=== PATIENT | female | born 1990 | race Caucasian/White ===

== ENCOUNTER → 2019-03-12 14:51 | Outpatient (CLI) | payer MEDICAID, SELFPAY ==
[2019-03-12 14:54] LABS: Microscopic, Urine URINE MICROSCOPIC (MICROSCOPIC)
[2019-03-12 15:24] LABS: Appearance,Urine CLEAR (Clear); Bilirubin,Urine Negative (Negative); Blood, Urine 2+ (Negative); Color,Urine YELLOW (Yellow); Glucose,Urine (UA) Negative (Negative); Ketones,Urine Negative (Negative); Leukocyte Esterase,Urine Negative (Negative); Nitrate,Urine Negative (Negative); Protein,Urine Negative (Negative); Urobilinogen,Urine 0.2 EU/dl (0.2)
[2019-03-12 15:30] LABS: Bacteria,Urine Trace /lpf; Squamous Epithelial Cell,Urine Occasional #/hpf (0-5); WBC,Urine Occasional #/hpf (0-3)
[2019-03-12 15:37] LABS: Basophils # 0.1 K/mm3 (0-0.2); Basophils % 0.7 % (0.1-2.0); Eosinophils # 0.2 K/mm3 (0.0-0.4); Eosinophils % 1.8 % (0.1-12.0); Hematocrit 43.2 % (37.0-47.0); Hemoglobin 14.6 g/dL (12.2-16.2); Lymphocytes % 33.4 % (10-50); Mean Corpuscular HGB Conc 33.9 g/dL (31.8-35.4); Mean Corpuscular Hemoglobin 30.5 pg (27.0-31.2); Mean Corpuscular Volume 90.1 fl (81-99); Mean Platelet Volume 8.3 fl (7.4-10.4); Monocytes # 0.7 K/mm3 (0.1-1.0); Monocytes % 5.7 % (1.7-9.3); Neutrophils # 7.1 K/mm3 (1.8-7.8); Neutrophils % 58.4 % (37.0-80.0); Platelet Count 262 K/mm3 (142-424); Red Cell Distribution Width 12.7 % (11.5-17.5); White Blood Count 12.1 K/mm3 (4.8-10.8)
[2019-03-12 17:14] LABS: HCG Qualitative, Serum Negative (Negative)
[2019-03-12 18:06] LABS: Alanine Aminotransferase 32 U/L (12-78); Albumin Level 4.2 gm/dL (3.4-5.0); Albumin/Globulin Ratio 1.1 (1.1-1.8); Alkaline Phosphatase 79 U/L (46-116); Aspartate Amino Transferase 16 U/L (15-37); Bilirubin,Total 0.2 mg/dL (0.2-1.0); Blood Urea Nitrogen 11 mg/dL (7-18); Calcium 9.3 mg/dL (8.5-10.1); Carbon Dioxide 27 mmol/L (21.0-32.0); Chloride 101 mmol/L (98-107); Creatinine,Serum 0.73 mg/dL (0.55-1.02); Estimated Glomerular Filt Rate 94 ml/min (>60); GFR (African American) 114 ML/MIN (>60); Globulin 3.7 gm/dl (1.3-3.2); Sodium 139 mmol/L (136-145); Total Protein,Serum 7.9 gm/dL (6.4-8.2)
[2019-03-12 19:02] LABS: Glucose 81 mg/dL (74-106)
== END ==
PROVIDERS: Visit Provider Obstetrics & Gynecology
DX: Z01.818 Encounter for other preprocedural examination (principal)
CPT/HCPCS: 36415; 80053; 81001; 84703; 85025

== ENCOUNTER 2019-03-17 09:23 | Inpatient (IN) ==
--- NOTE | 2019-03-17 13:21 | Progress Note ---
[facility] Anesthesia Checklist - Structural Data Admitted From: Home Planned Operative Procedure/s: [facility] Consent for Planned Operative Procedure(s) Verified: Yes - Airway Assessment C-Spine Mobility Assessed: Yes TMJ Mobility Assessed: Yes Dentition: Good Dentition - Neurological Assessment Level of Consciousness: Awake, Alert, Appropriate - Anesthesia Plan Anesthesia Risk discussed: Yes Anesthesia Plan: Verified ASA Class: II Anesthesia Type: General [facility] History I have reviewed the patient's past medical history: Yes Medical History: Reports:: Seizures (one seizure, 27 years ago) Denies:: Cancer, Diabetes Mellitus Type 1, Diabetes Mellitus Type 2, MRSA *Have you ever received a pneumonia vaccine?: No *Have you received a flu vaccine this season?: No Other Medical History: Denies: Blood Transfusion Reaction Laterality Cases: Bilateral: Myringotomy (Ear Tubes), Tonsillectomy Amputation: No Fractures: No - *Social History Educational Level: Completed High School Smoking Status: Current every day smoker Tobacco Type: cigarettes # Packs/Day (cigarettes): 1 Alcohol Intake: former Alcohol Intake Frequency:: holidays/special occasions only Substance Use Type: denies use *Occupational Status:: employed Housing: house Household Members: significant other *Travel in the last 8 weeks: None - Psychiatric History Expresses thoughts of harming self/others: None Suicide Plan Description: No Plan Family Hx:: No significant family history
--- NOTE | 2019-03-17 13:22 | Progress Note ---
[facility] Anesthesia Record Part II Discharge Time: 13:45 Destination: floor PACU nurse assessment reviewed?: Yes Patient Condition:: Good Anesthesia Complications:: None Swallowing reflex intact?: Yes Cyanosis?: No
--- NOTE | 2019-03-17 13:22 | Progress Note ---
[facility] Anesthesia Record Part I Intake, IV Amount: 1,400 Estimated blood loss (mL): 200 Urine output (mL): 100 Blood Pressure: 159/83 SaO2: 95 Pulse Rate: 99 Respiratory Rate: 12 Temperature: 97 F Patient is:: Awake, Stable Stable to PACU at:: 13:15
--- NOTE | 2019-03-17 13:29 | Operative Note ---
Date of procedure: 03/17/19 Pre-op Diagnosis:: 1. Pelvic pain. 2. Endometriosis. 3. Right adnexal mass. Post-op Diagnosis:: 1. Pelvic pain. 2. Endometriosis. 3. Right adnexal mass. 4. Extensive pelvic adhesions. Procedure performed:: Exploratory laparotomy, extensive lysis of adhesions, total abdominal hysterectomy, right salpingo-oophorectomy. Surgeon:: Ang Nguyen MD Executive Administrator(s):: ALEXANDRA Harris FROZEN MEAT CUTTER:: Elmer Palmer Anesthesia: GETA Estimated blood loss (mL): 300 Operative findings:: 1. Extensive pelvic adhesions. 2. Endometriosis. 3. Right adnexal mass. Operative note:: After the patient was prepped and draped in usual fashion and general anesthesia and intrathecal narcotics were administered, a low Pfannenstiel incision was made across the midline, and the fat and fascia was in usual fashion, bleeders being clamped and coagulated along the way. The peritoneum was entered with Metzenbaum scissors, and extended above and below. There were omental adhesions to the anterior abdominal wall, and these were taken down with a combination of sharp dissection and cautery. The bowel was packed away and a self-retaining [place] retractor was placed. The uterus was symmetrically mildly enlarged. It was fixed in the pelvis with dense adhesions posteriorly. The left tube and ovary were surgically absent. On the right side, the ovary significant hydrosalpinx. This adnexa was also fixed in the pelvis. Using careful blunt dissection, the right adnexa was brought up into view and was suggestive of an endometrioma. The infundibulopelvic and ovarian ligaments were crossclamped and cut, thus removing the right adnexa. These pedicles were Dorothy sutured, and then free tied, with #1 Vicryl. The uterine fundus was grasped with a double-tooth tenaculum and brought up out of the pelvis. Careful sharp and blunt dissection was carried out posteriorly to free up the uterus. The uterine vessels on each side were Dorothy clamped, cut, and Dorothy suture with #1 Vicryl, as were the round ligaments. The bladder peritoneum was sharply and bluntly dissected from the area of incision. The cardinal and uterosacral ligaments were individually, bilaterally, Dorothy clamped, cut, and Dorothy sutured with #1 Vicryl. The vagina was entered anteriorly with a knife, and the uterine specimen was removed with Erasmo scissors. Tayla clamps were used to tent up the vaginal cuff, which was closed with a running lock suture of #1 Vicryl. Extensive irrigation was carried out. There was some minor oozing in the cul-de-sac, which ceased with pressure. A piece of Surgicel was placed against the back of the vaginal cuff for further hemostasis. The upper abdomen was explored and found to be normal. The appendix was surgically absent. The peritoneum was grasped with 3 [place] clamps, and closed with a running semi-lock suture of 0 Vicryl. The muscle was approximated with a running unlocked suture of 0 Vicryl. The fascia was closed with a running lock suture of #1 Vicryl. The subcutaneous fat and Nettie's fascia were closed with a running unlocked suture of 2-0 Vicryl. The skin was closed with a subcuticular suture of 3-0 Vicryl, and appropriately dressed. The urine was clear in the Laguerre catheter. The sponge and needle counts correct. Estimated blood loss was 300 cc. The patient tolerated the procedure well, and was taken to PACU in excellent condition. She will be admitted postoperatively. Condition: stable Disposition: PACU Specimens:: Uterus and right adnexa. Complications:: None.
[2019-03-17 14:45] LABS: Hematocrit 38.7 % (37.0-47.0); Hemoglobin 13.1 g/dL (12.2-16.2)
--- NOTE | 2019-03-17 15:33 | Progress Note ---
Internal Medicine - PN: Subj *Date: 03/17/19 *Time: 15:31 Interval history: This is day of surgery. Patient is afebrile. Her urine output is good. She is complaining of pain from the catheter and I have explained that it can be removed but will have to be replaced if she has difficulty voiding. Surgery has been explained to the patient (extensive lysis of adhesions, DAVE, right SO).. Having some pain management issues at this time. Exam Vital signs and Labs for Last 24 Hours: Temp Pulse Resp BP Pulse Ox 98.2 F 77 18 125/70 97 03/17/19 14:00 03/17/19 14:00 03/17/19 14:00 03/17/19 14:00 03/17/19 14:00 Laboratory Results - last 24 hr 03/17/19 14:30: Hgb 13.1, Hct 38.7 I & O for Last 24 hours: Intake & Output 03/15/19 03/16/19 03/17/19 03/18/19 11:59 11:59 11:59 11:59 Intake Total 1625 / 1625 Output Total 100 / 100 Balance 1525 / 1525
[2019-03-18 07:38] LABS: Basophils % 0.2 % (0.1-2.0); Eosinophils % 0.2 % (0.1-12.0); Hematocrit 34.4 % (37.0-47.0); Lymphocytes # 3.1 K/mm3 (0.7-4.5); Mean Corpuscular HGB Conc 33.8 g/dL (31.8-35.4); Mean Corpuscular Hemoglobin 30.3 pg (27.0-31.2); Mean Corpuscular Volume 89.8 fl (81-99); Mean Platelet Volume 8.3 fl (7.4-10.4); Monocytes # 0.6 K/mm3 (0.1-1.0); Monocytes % 3.9 % (1.7-9.3); Neutrophils # 11.6 K/mm3 (1.8-7.8); Neutrophils % 75.7 % (37.0-80.0); Platelet Count 213 K/mm3 (142-424); Red Blood Count 3.83 M/mm3 (4.20-5.40); Red Cell Distribution Width 12.9 % (11.5-17.5); White Blood Count 15.4 K/mm3 (4.8-10.8)
[2019-03-18 07:44] LABS: Hemoglobin 11.6 g/dL (12.2-16.2)
--- NOTE | 2019-03-18 08:36 | Pharmacy Consult Notes ---
[facility] Pharmacy VTE Monitoring - Patient Demographics Admission date: 03/17/19 Report Date: 03/18/19 Time: 08:35 Allergies/Adverse Reactions: Patient Allergies Penicillins Allergy (Intermediate, Verified 03/17/19 09:53) I-HIVES codeine Allergy (Unknown, Verified 03/17/19 09:53) orange juice Allergy (Unknown, Verified 03/17/19 09:53) tomato Allergy (Verified 03/17/19 09:53) hydromorphone [From Dilaudid] Adverse Reaction (Verified 03/17/19 09:53) Height: 1.63 m Weight: 79.832 kg - VTE Risk Labs: VTE Related Lab Results Hgb 11.6 g/dL (12.2-16.2) L D 03/18/19 07:28 Hct 34.4 % (37.0-47.0) L 03/18/19 07:28 Plt Count 213 K/mm3 (142-424) 03/18/19 07:28 Clinical Trial Participant: No - Prophylaxis VTE Prophylaxis Ordered?: Yes Types of VTE Prophylaxis: IPCS Thigh High (POST OP) Location of Applied Device: Bilateral Lower Extremeties
--- NOTE | 2019-03-18 08:47 | Progress Note ---
Internal Medicine - PN: Subj *Date: 03/18/19 *Time: 08:46 Interval history: This is postop day #1. Surgery is again been explained to the patient. She is afebrile, but she did have a fever to 101 p.o. during the night (98.2 p.o. now). Her Laguerre is out and she has voided well. She is ambulating and on clear liquids. Her abdomen is somewhat distended and tender. Her wound is clean. She continues on IV antibiotics. The plan is continued observation and ambulation. Exam Vital signs and Labs for Last 24 Hours: Temp Pulse Resp BP Pulse Ox 98.2 F 73 16 120/72 98 03/18/19 07:23 03/18/19 07:23 03/18/19 07:23 03/18/19 07:23 03/18/19 07:23 Laboratory Results - last 24 hr 03/17/19 14:30: Hgb 13.1, Hct 38.7 03/17/19 : Urine Color Yellow, Urine Appearance Clear, Urine pH 5.5, Ur Specific [place] 1.020, Urine Protein Negative, Urine Glucose (UA) Negative, Urine Ketones Negative, Urine Blood 2+, Urine Nitrate Negative, Urine Bilirubin Negative, Urine Urobilinogen 0.2, Ur Leukocyte Esterase Negative, Urine RBC Occasional, Urine WBC Occasional, Ur Squamous Epith Cells 5-10, Urine Bacteria Trace 03/18/19 07:28: WBC 15.4 H, RBC 3.83 L, Hgb 11.6 L D, Hct 34.4 L, MCV 89.8, MCH 30.3, MCHC 33.8, RDW 12.9, Plt Count 213, MPV 8.3, Neut % (Auto) 75.7, Lymph % (Auto) 20.0, [place] % (Auto) 3.9, Eos % (Auto) 0.2, Baso % (Auto) 0.2, Neut # (Auto) 11.6 H, Lymph # (Auto) 3.1, [place] # (Auto) 0.6, Eos # (Auto) 0.0, Baso # (Auto) 0.0 I & O for Last 24 hours: Intake & Output 03/15/19 03/16/19 03/17/19 03/18/19 11:59 11:59 11:59 11:59 Intake Total 1625 / 1625 Output Total 700 / 700 Balance 925 / 925
[2019-03-18 09:42] LABS: Eosinophils % 1 % (0-3); Lymphocytes % 11 % (10-50); Monocytes % 2 % (2-9); Neutrophils % 85 % (42-76); Total Cells Counted 100
[2019-03-18 09:43] LABS: RBC Morphology Normal
[2019-03-18 16:57] LABS: Basophils % 0.1 % (0.1-2.0); Eosinophils # 0.1 K/mm3 (0.0-0.4); Eosinophils % 0.5 % (0.1-12.0); Hematocrit 34.8 % (37.0-47.0); Lymphocytes # 2.2 K/mm3 (0.7-4.5); Lymphocytes % 16.7 % (10-50); Mean Corpuscular HGB Conc 34.5 g/dL (31.8-35.4); Mean Corpuscular Hemoglobin 30.7 pg (27.0-31.2); Mean Corpuscular Volume 89.1 fl (81-99); Mean Platelet Volume 8.1 fl (7.4-10.4); Monocytes # 0.6 K/mm3 (0.1-1.0); Monocytes % 4.8 % (1.7-9.3); Neutrophils # 10.3 K/mm3 (1.8-7.8); Neutrophils % 77.9 % (37.0-80.0); Platelet Count 200 K/mm3 (142-424); Red Blood Count 3.91 M/mm3 (4.20-5.40); Red Cell Distribution Width 12.9 % (11.5-17.5); White Blood Count 13.2 K/mm3 (4.8-10.8)
[2019-03-18 17:10] LABS: Albumin/Globulin Ratio 0.8 (1.1-1.8); Anion Gap 12.7 mEq/L (5-15); Bilirubin,Total 0.6 mg/dL (0.2-1.0); Calcium 8.3 mg/dL (8.5-10.1); Globulin 3.6 gm/dl (1.3-3.2); Potassium 3.7 mmoL/L (3.5-5.1); Total Protein,Serum 6.6 gm/dL (6.4-8.2)
--- NOTE | 2019-03-18 17:53 | Progress Note ---
Internal Medicine - PN: Subj *Date: 03/18/19 *Time: 17:49 Interval history: She had a fever last night and then began to have a fever again this afternoon. She has received Tylenol. She is receiving IV Toradol but has not had any Toradol since about 930 this morning. She says she feels unwell. She has pain. She denies any chest pain, shortness of breath or calf tenderness. Her belly is sore. Recent blood work that I did this afternoon shows that her white blood cell count is come down from 15-13. Her hemoglobin has gone up to 12. Rest of her labs are normal. Exam Vital signs and Labs for Last 24 Hours: Temp Pulse Resp BP Pulse Ox 99.7 F H 111 H 20 128/84 97 03/18/19 15:00 03/18/19 15:00 03/18/19 15:00 03/18/19 15:00 03/18/19 15:00 Laboratory Results - last 24 hr 03/18/19 07:28: WBC 15.4 H, RBC 3.83 L, Hgb 11.6 L D, Hct 34.4 L, MCV 89.8, MCH 30.3, MCHC 33.8, RDW 12.9, Plt Count 213, MPV 8.3, Neut % (Auto) 75.7, Lymph % (Auto) 20.0, [place] % (Auto) 3.9, Eos % (Auto) 0.2, Baso % (Auto) 0.2, Neut # (Auto) 11.6 H, Lymph # (Auto) 3.1, [place] # (Auto) 0.6, Eos # (Auto) 0.0, Baso # (Auto) 0.0, Total Counted 100, Neutrophils % (Manual) 85 H, Lymphocytes % (Manual) 11, Monocytes % (Manual) 2, Eosinophils % (Manual) 1, Metamyelocytes % 1.0, Platelet Estimate Normal, RBC Morphology Normal 03/18/19 16:53: WBC 13.2 H, RBC 3.91 L, Hgb 12.0 L, Hct 34.8 L, MCV 89.1, MCH 30.7, MCHC 34.5, RDW 12.9, Plt Count 200, MPV 8.1, Neut % (Auto) 77.9, Lymph % (Auto) 16.7, [place] % (Auto) 4.8, Eos % (Auto) 0.5, Baso % (Auto) 0.1, Neut # (Auto) 10.3 H, Lymph # (Auto) 2.2, [place] # (Auto) 0.6, Eos # (Auto) 0.1, Baso # (Auto) 0.0 03/18/19 16:53: Sodium 136, Potassium 3.7, Chloride 102, Carbon Dioxide 25, Anion Gap 12.7, BUN 7, Creatinine 0.60, Estimated Creat Clear 174, Estimated GFR 118, Est GFR ( Amer) 143, Glucose 103, Calcium 8.3 L, Total Bilirubin 0.6, AST 12 L, ALT 19, Alkaline Phosphatase 66, Total Protein 6.6, Albumin 3.0 L , Globulin 3.6 H, Albumin/Globulin Ratio 0.8 L I & O for Last 24 hours: Intake & Output 03/16/19 03/17/19 03/18/19 03/19/19 11:59 11:59 11:59 11:59 Intake Total 1625 / 1625 Output Total 1150 / 1150 Balance 475 / 475 - Constitutional no acute distress - *Routine HEENT Exam Head: Present: normocephalic Eye: Present: EOMI, PERRL ENT: Present: mucous membranes moist - *Routine Neck Exam Present: supple, full ROM - *Routine Respiratory Exam Absent: accessory muscle use (good air entry bilaterally), wheezes, crackles Comments: She has good air entry bilaterally - *Routine Cardiovascular Exam Present: RRR. Absent: murmur - *Routine Abdominal Exam Present: soft, normoactive bowel sounds, surgical scars. Absent: tenderness, rebound, guarding, mass Comments: Her incision is clean and dry. - *Routine Rectal Exam Patient deferred: visual exam, digital exam - *Routine Exam Patient deferred: external exam, groin exam, perineal exam - *Routine Extremities Exam Present: full ROM. Absent: cyanosis, edema, calf tenderness - *Routine Skin Exam Present: intact (good color) - *Routine Neurological Exam Present: alert, oriented X3 - Routine Psychiatric Exam Present: normal affect Assessment and Plan (1) Postoperative fever Current visit: Yes Status: Acute Category: Medical Code(s): R50.82 - Postprocedural fever - Assessment and plan all Dx Assessment and Plan for all problems:: At this point in time I cannot find any reason for her postoperative fever. She has belly pain but she has good bowel sounds. She denies any calf tenderness. She denies any shortness of breath and there was no decreased air entry bilaterally on her chest examination. She denies any dysuria. We will send off a urinalysis to make sure she does not have a UTI. She is continuing to get IV antibiotics. We will continue with her anti-inflammatory scheduled as well as Tylenol. We will see how she does overnight. If her fever persists we will consider a CT scan of her abdomen and possibly chest x-ray and/or CT of her chest. She has Lovenox daily as well as compression hose on her legs.
[2019-03-18 21:14] LABS: Microscopic, Urine URINE MICROSCOPIC (MICROSCOPIC)
[2019-03-18 21:20] LABS: Appearance,Urine CLEAR (Clear); Bilirubin,Urine Negative (Negative); Blood, Urine 2+ (Negative); Color,Urine YELLOW (Yellow); Glucose,Urine (UA) Negative (Negative); Ketones,Urine Negative (Negative); Leukocyte Esterase,Urine Negative (Negative); PH,Urine 6.5 (5.0-8.5); Protein,Urine Negative (Negative); Specific Gravity, Urine <= 1.005 (1.005-1.030); Urobilinogen,Urine 0.2 EU/dl (0.2)
[2019-03-18 21:40] LABS: Bacteria,Urine Trace /lpf; RBC,Urine Occasional #/hpf (0-3); WBC,Urine Occasional #/hpf (0-3)
--- NOTE | 2019-03-19 07:02 | Progress Note ---
Internal Medicine - PN: Subj *Date: 03/19/19 *Time: 07:00 Interval history: This is postop day #2. Patient is afebrile, although she had another temperature elevation to 101 p.o. during the night. Her white count has decreased to 13.2. Her IV is infiltrated. Her urine output is good. She is ambulating and had a small bowel movement this morning. Her abdomen is soft, although slightly distended. Her wound is clean. Her lungs are clear. Calves are nontender. Impression: Likely resolving postop ileus. The plan is to start her on oral Levaquin and oral Percocet 5/325, and to increase her diet to a soft diet. Going to get a chest x-ray this morning also. Exam Vital signs and Labs for Last 24 Hours: Temp Pulse Resp BP Pulse Ox 98.4 F 104 H 18 130/74 97 03/19/19 05:32 03/19/19 05:32 03/19/19 05:32 03/19/19 05:32 03/19/19 05:32 Laboratory Results - last 24 hr 03/18/19 07:28: WBC 15.4 H, RBC 3.83 L, Hgb 11.6 L D, Hct 34.4 L, MCV 89.8, MCH 30.3, MCHC 33.8, RDW 12.9, Plt Count 213, MPV 8.3, Neut % (Auto) 75.7, Lymph % (Auto) 20.0, [place] % (Auto) 3.9, Eos % (Auto) 0.2, Baso % (Auto) 0.2, Neut # (A uto) 11.6 H, Lymph # (Auto) 3.1, [place] # (Auto) 0.6, Eos # (Auto) 0.0, Baso # (Auto) 0.0, Total Counted 100, Neutrophils % (Manual) 85 H, Lymphocytes % (Manual) 11, Monocytes % (Manual) 2, Eosinophils % (Manual) 1, Metamyelocytes % 1.0, Platelet Estimate Normal, RBC Morphology Normal 03/18/19 16:53: WBC 13.2 H, RBC 3.91 L, Hgb 12.0 L, Hct 34.8 L, MCV 89.1, MCH 30.7, MCHC 34.5, RDW 12.9, Plt Count 200, MPV 8.1, Neut % (Auto) 77.9, Lymph % (Auto) 16.7, [place] % (Auto) 4.8, Eos % (Auto) 0.5, Baso % (Auto) 0.1, Neut # (Auto) 10.3 H, Lymph # (Auto) 2.2, [place] # (Auto) 0.6, Eos # (Auto) 0.1, Baso # (Auto) 0.0 03/18/19 16:53: Sodium 136, Potassium 3.7, Chloride 102, Carbon Dioxide 25, Anion Gap 12.7, BUN 7, Creatinine 0.60, Estimated Creat Clear 174, Estimated GFR 118, Est GFR ( Amer) 143, Glucose 103, Calcium 8.3 L, Total Bilirubin 0.6, AST 12 L, ALT 19, Alkaline Phosphatase 66, Total Protein 6.6, Albumin 3.0 L , Globulin 3.6 H, Albumin/Globulin Ratio 0.8 L 03/18/19 20:54: Urine Color Yellow, Urine Appearance Clear, Urine pH 6.5, Ur Specific [place] <= 1.005, Urine Protein Negative, Urine Glucose (UA) Negative, Urine Ketones Negative, Urine Blood 2+, Urine Nitrate Negative, Urine Bilirubin Negative, Urine Urobilinogen 0.2, Ur Leukocyte Esterase Negative, Urine RBC Occasional, Urine WBC Occasional, Ur Squamous Epith Cells 3-5, Urine Bacteria Trace 03/19/19 02:18: Influenza Type A Ag Negative, Influenza Type B Ag Negative 03/19/19 02:18: Group A Strep Rapid Negative I & O for Last 24 hours: Intake & Output 03/16/19 03/17/19 03/18/19 03/19/19 11:59 11:59 11:59 11:59 Intake Total 1625 / 1625 Output Total 1150 / 1150 Balance 475 / 475 Assessment and Plan (1) Postoperative fever Current visit: Yes Status: Acute Category: Medical Code(s): R50.82 - Postprocedural fever
[2019-03-19 07:25] LABS: Basophils % 0.4 % (0.1-2.0); Eosinophils # 0.1 K/mm3 (0.0-0.4); Eosinophils % 0.8 % (0.1-12.0); Hematocrit 32.6 % (37.0-47.0); Hemoglobin 11.2 g/dL (12.2-16.2); Lymphocytes # 2.5 K/mm3 (0.7-4.5); Lymphocytes % 21.3 % (10-50); Mean Corpuscular HGB Conc 34.4 g/dL (31.8-35.4); Mean Corpuscular Volume 90.1 fl (81-99); Mean Platelet Volume 8.2 fl (7.4-10.4); Monocytes # 0.6 K/mm3 (0.1-1.0); Monocytes % 4.7 % (1.7-9.3); Neutrophils # 8.5 K/mm3 (1.8-7.8); Neutrophils % 72.7 % (37.0-80.0); Platelet Count 184 K/mm3 (142-424); Red Blood Count 3.62 M/mm3 (4.20-5.40); Red Cell Distribution Width 12.9 % (11.5-17.5); White Blood Count 11.7 K/mm3 (4.8-10.8)
--- NOTE | 2019-03-19 13:06 | Progress Note ---
Internal Medicine - PN: Subj *Date: 03/19/19 *Time: 13:03 Interval history: Called to see patient who has had the sudden onset of acute low back pain, primarily on the right. She is writhing in bed and crying. She states it started when she got up to void (normal clear urine). Abdominal exam reveals good bowel sounds, but exquisite tenderness in the right low back and CVA area. I am going to give her some Dilaudid and order a CT of her abdomen and pelvis, with and without contrast. Her IV will be restarted and she will be kept n.p.o. for now. Her temperature is 98.9 p.o. her blood pressure 150/90 (in pain). Going to also reinsert a Laguerre catheter and send urine for culture. Concern for ureteral obstruction. Exam Vital signs and Labs for Last 24 Hours: Temp Pulse Resp BP Pulse Ox 98.6 F 97 H 18 138/81 97 03/19/19 08:00 03/19/19 08:00 03/19/19 08:00 03/19/19 08:00 03/19/19 08:02 Laboratory Results - last 24 hr 03/18/19 16:53: WBC 13.2 H, RBC 3.91 L, Hgb 12.0 L, Hct 34.8 L, MCV 89.1, MCH 30.7, MCHC 34.5, RDW 12.9, Plt Count 200, MPV 8.1, Neut % (Auto) 77.9, Lymph % (Auto) 16.7, [place] % (Auto) 4.8, Eos % (Auto) 0.5, Baso % (Auto) 0.1, Neut # (Auto) 10.3 H, Lymph # (Auto) 2.2, [place] # (Auto) 0.6, Eos # (Auto) 0.1, Baso # (Auto) 0.0 03/18/19 16:53: Sodium 136, Potassium 3.7, Chloride 102, Carbon Dioxide 25, Anion Gap 12.7, BUN 7, Creatinine 0.60, Estimated Creat Clear 174, Estimated GFR 118, Est GFR ( Amer) 143, Glucose 103, Calcium 8.3 L, Total Bilirubin 0.6, AST 12 L, ALT 19, Alkaline Phosphatase 66, Total Protein 6.6, Albumin 3.0 L , Globulin 3.6 H, Albumin/Globulin Ratio 0.8 L 03/18/19 20:54: Urine Color Yellow, Urine Appearance Clear, Urine pH 6.5, Ur Specific [place] <= 1.005, Urine Protein Negative, Urine Glucose (UA) Negative, Urine Ketones Negative, Urine Blood 2+, Urine Nitrate Negative, Urine Bilirubin Negative, Urine Urobilinogen 0.2, Ur Leukocyte Esterase Negative, Urine RBC Occasional, Urine WBC Occasional, Ur Squamous Epith Cells 3-5, Urine Bacteria Trace 03/19/19 02:18: Influenza Type A Ag Negative, Influenza Type B Ag Negative 03/19/19 02:18: Group A Strep Rapid Negative 03/19/19 07:12: WBC 11.7 H, RBC 3.62 L, Hgb 11.2 L, Hct 32.6 L, MCV 90.1, MCH 31.0, MCHC 34.4, RDW 12.9, Plt Count 184, MPV 8.2, Neut % (Auto) 72.7, Lymph % (Auto) 21.3, [place] % (Auto) 4.7, Eos % (Auto) 0.8, Baso % (Auto) 0.4, Neut # (Auto) 8.5 H, Lymph # (Auto) 2.5, [place] # (Auto) 0.6, Eos # (Auto) 0.1, Baso # (Auto) 0.0 I & O for Last 24 hours: Intake & Output 03/17/19 03/18/19 03/19/19 03/20/19 11:59 11:59 11:59 11:59 Intake Total 1625 / 1625 Output Total 1150 / 1150 Balance 475 / 475 Weight 176 lb Assessment and Plan (1) Postoperative fever Current visit: Yes Status: Acute Category: Medical Code(s): R50.82 - Postprocedural fever
--- NOTE | 2019-03-19 15:18 | Progress Note ---
Internal Medicine - PN: Subj *Date: 03/19/19 *Time: 15:15 Interval history: The pain has somewhat resolved. CT with and without contrast revealed no evidence of hydroureter or urinary extravasation. There is no evidence of bleeding or ileus, but there is a large amount of stool in the bowel. (I was under the mistaken impression that she had had a bowel movement this morningnot so.) I have discussed this with the patient. Plan is to slowly reintroduce food, starting with clear liquids, and to observe with IV pain medication. A Dulcolax suppository has been recommended. Exam Vital signs and Labs for Last 24 Hours: Temp Pulse Resp BP Pulse Ox 98.9 F 98 H 20 150/90 H 99 03/19/19 13:00 03/19/19 13:00 03/19/19 13:00 03/19/19 13:00 03/19/19 13:00 Laboratory Results - last 24 hr 03/18/19 16:53: WBC 13.2 H, RBC 3.91 L, Hgb 12.0 L, Hct 34.8 L, MCV 89.1, MCH 30.7, MCHC 34.5, RDW 12.9, Plt Count 200, MPV 8.1, Neut % (Auto) 77.9, Lymph % (Auto) 16.7, [place] % (Auto) 4.8, Eos % (Auto) 0.5, Baso % (Auto) 0.1, Neut # (Auto) 10.3 H, Lymph # (Auto) 2.2, [place] # (Auto) 0.6, Eos # (Auto) 0.1, Baso # (Auto) 0.0 03/18/19 16:53: Sodium 136, Potassium 3.7, Chloride 102, Carbon Dioxide 25, Anion Gap 12.7, BUN 7, Creatinine 0.60, Estimated Creat Clear 174, Estimated GFR 118, Est GFR ( Amer) 143, Glucose 103, Calcium 8.3 L, Total Bilirubin 0.6, AST 12 L, ALT 19, Alkaline Phosphatase 66, Total Protein 6.6, Albumin 3.0 L , Globulin 3.6 H, Albumin/Globulin Ratio 0.8 L 03/18/19 20:54: Urine Color Yellow, Urine Appearance Clear, Urine pH 6.5, Ur Specific [place] <= 1.005, Urine Protein Negative, Urine Glucose (UA) Negative, Urine Ketones Negative, Urine Blood 2+, Urine Nitrate Negative, Urine Bilirubin Negative, Urine Urobilinogen 0.2, Ur Leukocyte Esterase Negative, Urine RBC Occasional, Urine WBC Occasional, Ur Squamous Epith Cells 3-5, Urine Bacteria Trace 03/19/19 02:18: Influenza Type A Ag Negative, Influenza Type B Ag Negative 03/19/19 02:18: Group A Strep Rapid Negative 03/19/19 07:12: WBC 11.7 H, RBC 3.62 L, Hgb 11.2 L, Hct 32.6 L, MCV 90.1, MCH 31.0, MCHC 34.4, RDW 12.9, Plt Count 184, MPV 8.2, Neut % (Auto) 72.7, Lymph % (Auto) 21.3, [place] % (Auto) 4.7, Eos % (Auto) 0.8, Baso % (Auto) 0.4, Neut # (Auto) 8.5 H, Lymph # (Auto) 2.5, [place] # (Auto) 0.6, Eos # (Auto) 0.1, Baso # (Auto) 0.0 I & O for Last 24 hours: Intake & Output 03/17/19 03/18/19 03/19/19 03/20/19 11:59 11:59 11:59 11:59 Intake Total 1625 / 1625 Output Total 1150 / 1150 Balance 475 / 475 Weight 176 lb Assessment and Plan (1) Postoperative fever Current visit: Yes Status: Acute Category: Medical Code(s): R50.82 - Postprocedural fever
--- NOTE | 2019-03-20 07:21 | Progress Note ---
Internal Medicine - PN: Subj *Date: 03/20/19 *Time: 07:20 Interval history: This is postop day #3. The patient has been afebrile throughout the night. She finally agreed to a Dulcolax suppository and has had 2 good bowel movements, which have relieved her back pain and most of her abdominal pain. She is tolerating full liquids and ambulating well. Her CT scan showed no evidence of ureteral obstruction or free fluid. The plan is to advance her diet and observe today. Exam Vital signs and Labs for Last 24 Hours: Temp Pulse Resp BP Pulse Ox 98.0 F 82 18 122/80 95 03/20/19 06:38 03/20/19 04:10 03/20/19 04:10 03/20/19 04:10 03/20/19 04:10 Laboratory Results - last 24 hr 03/19/19 07:12: WBC 11.7 H, RBC 3.62 L, Hgb 11.2 L, Hct 32.6 L, MCV 90.1, MCH 31.0, MCHC 34.4, RDW 12.9, Plt Count 184, MPV 8.2, Neut % (Auto) 72.7, Lymph % (Auto) 21.3, [facility] % (Auto) 4.7, Eos % (Auto) 0.8, Baso % (Auto) 0.4, Neut # (Auto) 8.5 H, Lymph # (Auto) 2.5, [facility] # (Auto) 0.6, Eos # (Auto) 0.1, Baso # (Auto) 0.0 I & O for Last 24 hours: Intake & Output 03/17/19 03/18/19 03/19/19 03/20/19 11:59 11:59 11:59 11:59 Intake Total 1625 / 1625 Output Total 1150 / 1150 2650 / 2650 Balance 475 / 475 -2650 / -2650 Weight 176 lb 176 lb Assessment and Plan (1) Postoperative fever Current visit: Yes Status: Acute Category: Medical Code(s): R50.82 - Postprocedural fever
--- NOTE | 2019-03-20 16:16 | Progress Note ---
Internal Medicine - PN: Subj *Date: 03/20/19 *Time: 16:15 Interval history: The patient has remained afebrile. She is eating and ambulating and has had bowel movements. Her abdomen is soft. Wound clean. She is anxious for discharge and will be discharged this afternoon. Exam Vital signs and Labs for Last 24 Hours: Temp Pulse Resp BP Pulse Ox 98.2 F 93 H 20 130/85 100 03/20/19 12:25 03/20/19 12:25 03/20/19 12:25 03/20/19 12:25 03/20/19 12:25 I & O for Last 24 hours: Intake & Output 03/18/19 03/19/19 03/20/19 03/21/19 11:59 11:59 11:59 11:59 Intake Total 1625 / 1625 Output Total 1150 / 1150 2650 / 2650 Balance 475 / 475 -2650 / -2650 Weight 176 lb 176 lb Assessment and Plan (1) Postoperative fever Current visit: Yes Status: Acute Category: Medical Code(s): R50.82 - Postprocedural fever
--- NOTE | 2019-03-20 16:25 | Discharge Summary ---
General - General Admission date:: 03/17/19 Discharge date: 03/20/19 (This 28-year-old white female was admitted for definitive treatment of pelvic pain and endometriosis. She had previously undergone a left salpingo-oophorectomy, and was known to have extensive pelvic adhesions. On the date of admission, she was taken to the operating room, where she underwent an exploratory laparotomy with extensive lysis of adhesions total abdominal hysterectomy and right salpingo-oophorectomy, without complications. Her appendix had previously been removed. A large right endometrioma was encountered during surgery. She received Delestrogen 30 mg IM in PACU on the date of surgery. Initially the patient did well postoperatively. On the evening of the second postoperative day she experienced the acute onset of what appeared to be exquisite right low back pain. She had spiked a fever to 101.4 orally on both the first and second postop evenings. Patient's hemoglobin remained stable at 11.6 to 11.2 g. Her initial white count was 15.4 g but this subsequently decreased with intravenous antibiotics. Chest x-ray was normal. CT scan was read as normal (no evidence of ureteral obstruction or free fluid or extravasation of fluid. However, a large amount of stool was noted in the colon. After 2 Dulcolax suppositories were administered, the patient had 2 large bowel movements and her pain greatly subsided to a normal post-op level. Impression: obstipation/post-op ileus. Since that time the patient has remained afebrile and her abdomen is soft..Herf wound is clean/intact. She is anxious for discharge, and is discharged home on the 3rd post-op day on Percocet 5/325 (#30), 1 po q6h prn pain..Tylenol may be taken intermittently. She is given appropriate instructions as to diet and exercise, and she is to return to the office in 2 weeks for follow-up, or prn for worsening symptoms. She is a smoer, but refuses smoking cessation patches.) Objective Vital signs: Temp Pulse Resp BP Pulse Ox 98.2 F 93 H 20 130/85 100 03/20/19 12:25 03/20/19 12:25 03/20/19 12:25 03/20/19 12:25 03/20/19 12:25 DS: Diagnosis - Discharge Diagnosis (1) Postoperative fever Status: Acute Discharge Plan - Patient Discharge Instructions ACTIVITY: Ambulate as tolerated DIET: advance to your usual diet Additional Instructions: No heavy lifting, no strenuous activity, no driving while taking prescription narcotics. Patient Instructions: Hysterectomy -- Open Surgery, Surgical Site Infection, DI for Postoperative Pain - Follow up Plan Follow up with: Ang Nguyen MD [Staff Physician] - Disposition: Home, Self-Intermediate Medications: Home Medications Medication Instructions Recorded Confirmed Type Hydrocod/Acet 5/325 mg [[place] 1 tab PO Q6HP PRN #10 tab 02/17/19 03/17/19 Rx 5/325mg tablet] Chlorhexidine Gluconate 1 applic TOPICAL ONCE 03/16/19 03/17/19 History Oxycodone HCl [OxyIR 5mg tablet] 5 mg PO Q6HP PRN #30 tab 03/20/19 Rx Prescriptions/Medication Reconciliation: New Acetaminophen [Acetaminophen 325mg tab] 650 mg PO Q4HP PRN tablet PRN Reason: Mild Pain Oxycodone HCl [OxyIR 5mg tablet] 5 mg PO Q6HP PRN #30 tab PRN Reason: Moderate Pain Discontinued Hydrocod/Acet 5/325 mg [[place] 5/325mg tablet] 1 tab PO Q6HP PRN #10 tab PRN Reason: Pain Chlorhexidine Gluconate 1 applic TOPICAL ONCE
== END 2019-03-20 16:50 | disposition home or self-care (01) | DRG 743 ==
LOC: OR 09:23 → OB 13:15
PROVIDERS: ADMIT Obstetrics & Gynecology; ATTEND Obstetrics & Gynecology
CPT/HCPCS: 36415; 71020; 71046; 74178; 80053; 81001; 85007; 85014; 85018; 85025; 87275; 87276; 87430; 94761; 96374; J1956; J2405; J2710; Q9967; S0077

== ENCOUNTER 2020-03-16 13:50 | Emergency (ER) | payer MEDICAID, SELFPAY ==
[2020-03-16 13:51] VITALS: BP 137/94; PULSE 83; RESP 18; TEMP 37; O2SAT 98; BMI 32.2
--- NOTE | 2020-03-16 14:26 | HMH.EDDENT ---
ED Disposition Clinical Impression: Aphthous ulcer, Toothache, Dental caries, Fracture of tooth Disposition: Home, Self-Care Condition on Discharge: Good Instructions: DI for Tooth Decay, DI for Dental Pain Prescriptions: clindamycin HCL [Clindamycin HCl 300mg Cap] 300 mg PO Q8 10 Days #30 cap Transmission Status: Pending to [facility] Ketorolac Tromethamine [Toradol 10mg tablet] 10 mg PO Q6H 5 Days #20 tab Transmission Status: Pending to [facility] Referrals: Brenda Santos [Primary Care Provider] - - Critical Care Critical Care Time: No Attestation: On 03/16/20, the high probability of a clinically significant, sudden or life threatening deterioration of the following system(s) required my full and direct attention, intervention and personal management. The time I documented below is in addition to time spent performing reported procedures but includes the following listed in this critical care notation. Medical Decision Making - Abdirahman Inquiry Pt receiving controlled substance: No Vital Signs: 03/16/20 13:51 Temperature 98.6 F Temperature Source Oral Pulse Rate [Right Radial] 83 Respiratory Rate 18 Blood Pressure [Right Arm] 137/94 H Blood Pressure Mean [Right Arm] 108 Blood Pressure Source [Right Arm] Automatic Cuff Blood Pressure Position [Right Arm] Sitting 02 Sat by Pulse Oximetry 98 Oxygen Delivery Method Room Air Dental HPI - General Chief complaint: Dental/Oral Stated complaint: dental pain,cough,headache Time Seen by Provider: 03/16/20 14:26 Mode of Arrival: Ambulatory Source of Information: Patient Limitations: No Limitations Description of Symptoms (Recalled from ER Triage Doc. by RN): PT C/O RT SIDE DENTAL PAIN SINCE YESTERDAY D/T 2 BAD TEETH ON THAT SIDE OF HER MOUTH AND INABILITY TO GET INTO THE DENTIST. - History of Present Illness HPI Narrative: 29-year-old female presents the ED complaining of dental pain. She states that she had a fractured tooth on Saturday and she is noticed an increase swelling of her lower jaw. She states that she cannot get into see her dentist because dentist are not open yet even though dentist were allowed to start practicing on Saturday of this week secondary to the restrictions here in the state [facility] however she states her dentist does not have the appropriate PPE to take care of patients as of yet. And she presents here to the ED she denies any recent fever shakes or chills she also denies any cough or shortness of breath. She does state her pain is 7 out of 10 and sharp she states no alleviating factors exacerbating factors include eating and drinking warm fluids. - Related Data Previous Rx's Medication Instructions Recorded Acetaminophen [Acetaminophen 325mg 650 mg PO Q4HP PRN tab 03/20/19 tab] Oxycodone HCl [OxyIR 5mg tablet] 5 mg PO Q6HP PRN #30 tab 03/20/19 estradiol 2 mg tablet 2 mg PO DAILY #30 tab 04/03/19 Ketorolac Tromethamine [Toradol 10 mg PO Q6H 5 Days #20 tab 03/16/20 10mg tablet] clindamycin HCL [Clindamycin HCl 300 mg PO Q8 10 Days #30 cap 03/16/20 300mg Cap] Allergies Allergy/AdvReac Type Severity Reaction Status Date / Time Penicillins Allergy Intermediate I-HIVES Verified 05/04/19 15:30 codeine Allergy Unknown Verified 05/04/19 15:30 orange juice Allergy Unknown Verified 05/04/19 15:30 tomato Allergy Verified 05/04/19 15:30 hydromorphone [From Dilaudid] AdvReac Verified 05/04/19 15:30 [facility] History - Hepatitis A Screen Drug use history?: No High risk sexual behaviors?: No History of sexually transmitted infection?: No Currently employed?: No Childcare worker?: No Do you have indoor plumbing?: Yes Do you have electricity?: Yes Attestation statement:: This patient has been screened for Hepatitis A risk factors. I have reviewed the patient's past medical history: Yes Medical History: Reports:: Seizures Denies:: Cancer, Diabetes Mellitus Type 1, Di
[2020-03-16 14:50] VITALS: BP 137/94; PULSE 83; RESP 18; TEMP 37; O2SAT 98
== END 2020-03-16 14:50 | disposition home or self-care (01) ==
PROVIDERS: Emergency Provider Family Medicine; PCP Nurse Practitioner Family
DX: K12.0 Recurrent oral aphthae (principal); S02.5XXA Fracture of tooth (traumatic), initial encounter for closed fracture; K02.9 Dental caries, unspecified
CPT/HCPCS: 96372; 99281

== ENCOUNTER 2022-06-15 14:23 | Emergency (ER) | payer MEDICAID, SELFPAY ==
[2022-06-15 14:35] VITALS: BP 140/100; PULSE 86; RESP 16; TEMP 36.6; O2SAT 98; BMI 29.8
--- NOTE | 2022-06-15 14:55 | HMH.EDUTC ---
[facility] [place] Disposition Clinical Impression: Dental abscess, Pain, dental Disposition: Home, Self-Care Condition on Discharge: Good Instructions: Tooth Abscess, DI for Tooth Abscess Additional Instructions: Drink plenty of fluids. Take ibuprofen for pain. I sent in a prescription to your pharmacy. Take the medications as directed. Follow up with your regular doctor. GO TO THE ER FOR ANY WORSENING SYMPTOMS you have to follow up with a dentist. Prescriptions: Ibuprofen [Ibuprofen 800mg Tablet] 800 mg PO Q8HP PRN #30 tab PRN Reason: Moderate Pain Transmission Status: Sent to [facility] Ondansetron [Zofran 4mg ODT] 4 mg PO Q8HP PRN #12 tab PRN Reason: Nausea Transmission Status: Sent to [facility] clindamycin HCL [Cleocin HCl] 300 mg PO Q8H 10 Days #30 cap Transmission Status: Received by [facility] Referrals: Brenda Santos [Primary Care Provider] - Forms: Work/School Release Time of Disposition: 15:38 Medical Decision Making - Medical Records Medical records reviewed: No: I reviewed the patient's medical records. - Abdirahman Inquiry Pt receiving controlled substance: No Vital Signs: 06/15/22 14:35 06/15/22 15:08 Temperature 97.8 F 98.4 F Temperature Source Oral Oral Pulse Rate [Right Radial] 86 84 Respiratory Rate 16 17 Blood Pressure [Right Arm] 140/100 H 136/84 Blood Pressure Mean [Right Arm] 113 101 Blood Pressure Position [Right Arm] Sitting 02 Sat by Pulse Oximetry 98 99 Oxygen Delivery Method Room Air [facility] [place] HPI - General Stated complaint: jaw/oral pain Time Seen by Provider: 06/15/22 14:55 Mode of Arrival: Ambulatory Source of Information: Patient Limitations: No Limitations Description of Symptoms (Recalled from Triage Doc. by RN): Pt c/o R sided jaw and dental pain x2 days. Pt reports knot on gum area. Pt denies fevers. - History of Present Illness Provider Complaint: She c/o right upper jaw dental pain and swelling for the past 4 days. She has an appt with her dentist but its not until 2 weeks from now. She denies any fever or chills. - Related Data Previous Rx's Medication Instructions Recorded Acetaminophen [Acetaminophen 325mg 650 mg PO Q4HP PRN tab 03/20/19 tab] Oxycodone HCl [OxyIR 5mg tablet] 5 mg PO Q6HP PRN #30 tab 03/20/19 estradiol 2 mg tablet 2 mg PO DAILY #30 tab 04/03/19 Ketorolac Tromethamine [Toradol 10 mg PO Q6H 5 Days #20 tab 03/16/20 10mg tablet] clindamycin HCL [Clindamycin HCl 300 mg PO Q8 10 Days #30 cap 03/16/20 300mg Cap] Ibuprofen [Ibuprofen 800mg 800 mg PO Q8HP PRN #30 tab 06/15/22 Tablet] Ondansetron [Zofran 4mg ODT] 4 mg PO Q8HP PRN #12 tab 06/15/22 clindamycin HCL [Cleocin HCl] 300 mg PO Q8H 10 Days #30 cap 06/15/22 Allergies Allergy/AdvReac Type Severity Reaction Status Date / Time Penicillins Allergy Intermediate I-HIVES Verified 06/15/22 15:11 codeine Allergy Unknown Verified 06/15/22 15:11 orange juice Allergy Unknown Verified 06/15/22 15:11 tomato Allergy Verified 06/15/22 15:11 hydromorphone [From Dilaudid] AdvReac Verified 06/15/22 15:11 [facility] History - Hepatitis A Screen Attestation statement:: This patient has been screened for Hepatitis A risk factors. I have reviewed the patient's past medical history: Yes Medical History: Reports:: Seizures Denies:: Cancer, Diabetes Mellitus Type 1, Diabetes Mellitus Type 2, MRSA Other Medical History: Denies: Blood Transfusion Reaction Comment: ENDOMETRIOSIS. TWIN Laterality Cases: Bilateral: Myringotomy (Ear Tubes), Tonsillectomy Amputation: No Fractures: No Comment: DX. LSC, EXPL. LAP., BILATERAL OV. CYSTX, APPT ([place])---2003 W/ PATH=RT. OV. CYSTADENOFRIBOMA AND SAPINGITIS. DX. LSC (DR. CORDOVA)---2008. 03/17/19-Ex. Lap, Ex. adhesiolysis, DAVE, Rt. SO. EXPL. LAP W/ EXTENSIVE ADHESIOLYSIS, LT SO, MYOMX---2017. 2019-Ex. Lap, extensive lysis of adhesions, DAVE, Rt. SO - Social History Smoking
[2022-06-15 15:08] VITALS: BP 136/84; PULSE 84; RESP 17; TEMP 36.9; O2SAT 99; BMI 29.8
[2022-06-15 15:47] VITALS: BP 136/84; PULSE 84; RESP 17; TEMP 36.9
== END 2022-06-15 15:47 | disposition home or self-care (01) ==
PROVIDERS: Emergency Provider Nurse Practitioner Family; PCP Nurse Practitioner Family
DX: K04.7 Periapical abscess without sinus (principal); R68.84 Jaw pain; N80.9 Endometriosis, unspecified; G40.909 Epilepsy, unspecified, not intractable, without status epilepticus; F17.210 Nicotine dependence, cigarettes, uncomplicated; Z79.1 Long term (current) use of non-steroidal anti-inflammatories (NSAID); Z79.890 Hormone replacement therapy; Z79.899 Other long term (current) drug therapy; Z91.018 Allergy to other foods
CPT/HCPCS: 99213; G0463

== ENCOUNTER 2022-10-22 10:00 | Outpatient (RCR) | payer MEDICAID, SELFPAY | END 2022-11-20 13:27 | disposition home or self-care (01) | LOC: PT 10:00 | PROVIDERS: PCP Nurse Practitioner Family; Visit Provider Orthopaedic Surgery Adult Reconstructive Orthopaedic Surgery | DX: M75.112 Incomplete rotator cuff tear or rupture of left shoulder, not specified as traumatic (principal) | CPT/HCPCS: 97010; 97014; 97110; 97140; 97163; G0283 ==

== ENCOUNTER 2025-04-02 11:00 | Outpatient (RCR) | payer MEDICAID, SELFPAY | END 2025-04-02 23:59 | disposition home or self-care (01) | LOC: PT 11:00 | PROVIDERS: Visit Provider Nurse Practitioner Family | DX: M54.50 Low back pain, unspecified (principal) | CPT/HCPCS: 97110; 97112; 97140; 97163 ==